=== PATIENT | male | born 1955 | race Two or more races ===

== ENCOUNTER 2022-05-14 11:19 | Emergency (ER) | payer MEDICARE, OTHER ==
[~2022-05-14] VITALS: Ht 167.6 cm; Wt 81.6 kg
[~2022-05-14 11:19] MED LIST: ENAL5TAB10 PO; NOR10T PO; OMEP20CA74 PO
[2022-05-14] MEDS ORDERED: SODIUM CHLORIDE 0.9% 1,000 ML IVB ONE (11:30)
[2022-05-14] MEDS ORDERED: ACTIVATED CHARCOAL 50 GM/240 ML SOL PO ONE (11:30)
[2022-05-14] MEDS ORDERED: cefTRIAXone 1GM/50ML D5W 50 ML IV ONE (11:45)
[2022-05-14 12:15] LABS: Basophils # (auto) 0 10 ^3/uL (0-0.2); Basophils % (auto) 0.4 % (0.0-2.0); Eosinophils # (auto) 0 10 ^3/uL (0-0.8); Eosinophils % (auto) 0.4 % (0.0-7.0); Hematocrit 40.7 % (41.0-53.0); Hemoglobin 13.3 g/dL (13.5-17.5); Lymphocytes % (auto) 21.4 % (10.0-50.0); Mean Corpuscular Hemoglobin 28.2 pg (28.0-32.0); Mean Corpuscular Hgb Conc. 32.6 g/dL (32.0-36.0); Mean Corpuscular Volume 86.4 fL (80.0-100.0); Monocytes # (auto) 0.7 10 ^3/uL (0-1.3); Monocytes % (auto) 7.5 % (0.0-12.0); Neutrophils # (auto) 6.7 10 ^3/uL (1.6-8.6); Neutrophils % (auto) 70.3 % (37.0-80.0); Nucleated Red Blood Cells % 0.1 %; Red Blood Cells 4.71 10^6/uL (4.5-5.90); Red Cell Distribution Width 14.5 % (11.8-14.3); White Blood Cell 9.5 10^3/uL (4.4-10.8)
[2022-05-14 12:30] LABS: Alcohol, Urine < 3.0 mg/dL (0-10); Amphetamine Screen, Urine NEGATIVE (NEGATIVE); Barbiturate Scree,Urine NEGATIVE (NEGATIVE); Benzodiazephine Screen, Urine NEGATIVE (NEGATIVE); Cannabinoid Screen, Urine NEGATIVE (NEGATIVE); Cocaine Screen, Urine NEGATIVE (NEGATIVE); Opiate Scree,Urine POSITIVE (NEGATIVE); Phencyclidine Screen, Urine NEGATIVE (NEGATIVE)
[2022-05-14 12:33] LABS: Albumin 2.6 g/dL (3.4-5.0); BUN/Creatinine Ratio 16.1; Calcium 8.9 mg/dL (8.5-10.1); Potassium 3.6 mmol/L (3.5-5.1)
[2022-05-14 12:36] LABS: Bilirubin, Total 0.2 mg/dL (0.2-1.0); Total Protein 7.7 g/dL (6.4-8.2)
[2022-05-14 12:46] LABS: Acetaminophen 36.5 ug/mL (10-30)
[2022-05-14 12:49] LABS: Salicylate 34.7 mg/dL (2.8-20.0)
[2022-05-14 12:57] LABS: Urine Bacteria NONE SEEN /hpf (None Seen); Urine Blood Negative /uL (Negative); Urine Specific Gravity 1.013 (1.001-1.035); Urine WBC <1 /hpf (0 - 3)
[2022-05-14] MEDS ORDERED: SODIUM CHLORIDE 0.9% 1,000 ML IV ONE (13:00)
[2022-05-14] MEDS ORDERED: cloNIDine HCL 0.1 MG TAB PO ONE (14:30)
[2022-05-14 14:58] VITALS: BP 184/89
== END 2022-05-14 15:27 | disposition short-term general hospital (02) ==
LOC: ER 11:19 → EDBD 11:19 → ER 15:27
DX: T39.012A Poisoning by aspirin, intentional self-harm, initial encounter (principal); T46.4X2A Poisoning by angiotensin-converting-enzyme inhibitors, intentional self-harm, initial encounter; L03.113 Cellulitis of right upper limb; I10 Essential (primary) hypertension; E11.9 Type 2 diabetes mellitus without complications; Z79.899 Other long term (current) drug therapy; Z20.822 Contact with and (suspected) exposure to COVID-19; Y92.89 Other specified places as the place of occurrence of the external cause
CPT/HCPCS: 36415; 71045; 73200; 80053; 80307; 80320; 80329; 81001; 85025; 87426; 93005; 96361; 96365; 99285; J0696; J7030

== ENCOUNTER 2023-03-21 13:01 | Inpatient (IN) | payer OTHER ==
[~2023-03-21] VITALS: Ht 167.6 cm; Wt 86.9 kg
[2023-03-21] MEDS ORDERED: PIPERACILLIN-TAZOB 3.375GM 100 ML IV ONE (13:15)
[2023-03-21] MEDS ORDERED: SODIUM CHLORIDE 0.9% 1,000 ML IV ONE ×2 (13:15→15:15)
[2023-03-21] MEDS ORDERED: VANCOMYCIN 1GM/250ML 250 ML IV ONE (13:15)
[2023-03-21 14:10] LABS: Albumin 1.9 g/dL (3.4-5.0); Calcium 8.4 mg/dL (8.5-10.1); Potassium 3.5 mmol/L (3.5-5.1)
[2023-03-21 14:17] LABS: Basophils # (auto) 0 10 ^3/uL (0-0.2); Eosinophils # (auto) 0 10 ^3/uL (0-0.8); White Blood Cell 5.5 10^3/uL (4.4-10.8)
[2023-03-21 14:18] LABS: BUN/Creatinine Ratio 13.8 (10.0-20.0); Bilirubin, Total 0.3 mg/dL (0.2-1.0); CRP High Sensitivity 13.3 mg/dL (< 0.3)
[2023-03-21 14:19] LABS: Basophils % (auto) 0.6 % (0.0-2.0); Eosinophils % (auto) 0.6 % (0.0-7.0); Hematocrit 32.5 % (41.0-53.0); Hemoglobin 10.2 g/dL (13.5-17.5); Lymphocytes # (auto) 1.3 10 ^3/uL (0.4-5.4); Lymphocytes % (auto) 23.8 % (10.0-50.0); Mean Corpuscular Hemoglobin 21.4 pg (28.0-32.0); Mean Corpuscular Hgb Conc. 31.5 g/dL (32.0-36.0); Monocytes # (auto) 0.5 10 ^3/uL (0-1.3); Neutrophils # (auto) 3.6 10 ^3/uL (1.6-8.6); Nucleated Red Blood Cells % 0.3 %; Red Blood Cells 4.77 10^6/uL (4.5-5.90); Red Cell Distribution Width 18.9 % (11.8-14.3)
[2023-03-21] MEDS ORDERED: IOHEXOL 300 MG/ML 100ML BOTTLE IJ ONE (14:59)
[2023-03-21 15:49] LABS: Lactic Acid w/Reflex 4.4 mmol/L (0.4-2.0)
[2023-03-21] MEDS ORDERED: CLINDAMYCIN 900MG IV 50 ML IV ONE (18:00)
[2023-03-21] MEDS ORDERED: fentaNYL CITRATE 100 MCG/2 ML VL IV ONE ×2 (18:45→23:15)
[2023-03-21 20:56] LABS: INR 1.07 (0.9-1.15); Partial Thromboplastin Time 29.6 sec (24.6-33.4)
[2023-03-21] MEDS ORDERED: NITROGLYCERIN 0.4 MG SL TAB SL PRN (23:15)
[2023-03-21] MEDS ORDERED: VANCOMYCIN PER PHARMACY 0 MG IV SCH (23:15)
[2023-03-21] MEDS ORDERED: DOCUSATE SOD 100 MG CAP PO PRN (23:15)
[2023-03-21] MEDS ORDERED: ACETAMINOPHEN 325 MG TAB PO PRN (23:15)
[2023-03-21] MEDS ORDERED: HYDROcodone-ACET 5/325MG TAB PO PRN (23:15)
[2023-03-21] MEDS ORDERED: ALBUMIN 25% 100 ML IV ONE (23:15)
[2023-03-21] MEDS ORDERED: MORPHINE SULFATE INJ 2 MG/ml SYRG IV PRN (23:15)
[2023-03-21] MEDS ORDERED: ONDANSETRON HCL 4 MG/2 ML VIAL IV PRN (23:15)
[2023-03-21] MEDS ORDERED: DEXTROSE (50%) 50ML SYRG IV PRN (23:15)
[2023-03-21] MEDS ORDERED: SODIUM CHLORIDE 0.9% 1,000 ML IV SCH (23:15)
[2023-03-22] VITALS (8 sets, daily range): BP systolic 121–169; BP diastolic 70–86
[2023-03-22] MEDS: ACCU-CHEK COMFORT CURVE STRIP VI SCH ×4 (00:11→17:57)
[2023-03-22] MEDS: PIPERACILLIN-TAZOB 3.375GM 100 ML IV SCH ×3 (02:25→22:19)
[2023-03-22] MEDS: MORPHINE SULFATE INJ 2 MG/ml SYRG IV PRN ×5 (03:22→22:13)
[2023-03-22] MEDS: InsuLIN REG 1unit/0.01ml Soln (100units/ml) SC SCH ×5 (06:00→23:52)
[2023-03-22 07:03] LABS: Basophils # (auto) 0 10 ^3/uL (0-0.2); Basophils % (auto) 0.5 % (0.0-2.0); Eosinophils # (auto) 0.1 10 ^3/uL (0-0.8); Lymphocytes # (auto) 1.2 10 ^3/uL (0.4-5.4)
[2023-03-22 07:05] LABS: Eosinophils % (auto) 2.2 % (0.0-7.0); Hematocrit 28.3 % (41.0-53.0); Lymphocytes % (auto) 25.2 % (10.0-50.0); Mean Corpuscular Hemoglobin 21.5 pg (28.0-32.0); Mean Corpuscular Hgb Conc. 31.9 g/dL (32.0-36.0); Mean Corpuscular Volume 67.2 fL (80.0-100.0); Monocytes # (auto) 0.5 10 ^3/uL (0-1.3); Monocytes % (auto) 10.4 % (0.0-12.0); Neutrophils % (auto) 61.7 % (37.0-80.0); Nucleated Red Blood Cells % 0.1 %; Red Blood Cells 4.21 10^6/uL (4.5-5.90); Red Cell Distribution Width 18.7 % (11.8-14.3); White Blood Cell 4.9 10^3/uL (4.4-10.8)
[2023-03-22 07:35] LABS: Albumin 2.2 g/dL (3.4-5.0); BUN/Creatinine Ratio 15.3 (10.0-20.0); Bilirubin, Total 0.3 mg/dL (0.2-1.0); Calcium 8.2 mg/dL (8.5-10.1); Potassium 3.1 mmol/L (3.5-5.1); Total Protein 6.4 g/dL (6.4-8.2)
[2023-03-22] MEDS ORDERED: POTASSIUM CHLORIDE 20 MEQ, LIDOCAINE 1% (LOCAL ANESTH.) 2 ML in SODIUM CHL 0.9% 100 ML IV ONE (08:45)
[2023-03-22] MEDS ORDERED: SOD CHL 0.9%/ KCL 40MEQ 1,000 ML IV ONE (08:45)
[2023-03-22] MEDS ORDERED: PROPOFOL 10 MG/ML 20 ML IV ONE (09:52)
[2023-03-22] MEDS ORDERED: DexAMETHasone SOD PHOS 10MG/1ML VIAL INJ ONE (09:53)
[2023-03-22] MEDS ORDERED: ePHEDrine SULFATE 50 MG/ML AMP ONE (09:53)
[2023-03-22] MEDS ORDERED: ONDANSETRON HCL 4 MG/2 ML VIAL ONE (09:53)
[2023-03-22] MEDS ORDERED: ENOXAPARIN SOD 40 MG/0.4 ML SYRINGE SC SCH (10:00)
[2023-03-22] MEDS ORDERED: ASPirin 81 mg TAB PO SCH (10:00)
[2023-03-22] MEDS ORDERED: LIDOCAINE 2% (LOCAL ANESTH.) PF 5ml SDV ONE (10:38)
[2023-03-22] MEDS ORDERED: HYDROmorphone HCL 2 MG/ML VL/or syr IV PRN (11:15)
[2023-03-22] MEDS ORDERED: LABETALOL HCL 5 MG/ML 4ML SYRINGE IV PRN (11:15)
[2023-03-22] MEDS ORDERED: hydrALAZINE HCL 20 MG/ML VL IV PRN (11:15)
[2023-03-22] MEDS: FAMOTIDINE (10MG/ML) 2ML VL IV SCH ×2 (12:41→22:19)
[2023-03-22] MEDS: VANCOMYCIN 1GM/250ML 250 ML IV SCH ×2 (14:13→22:19)
[2023-03-23] MEDS: ACCU-CHEK COMFORT CURVE STRIP VI SCH ×2 (00:29→05:57)
[2023-03-23] MEDS: MORPHINE SULFATE INJ 2 MG/ml SYRG IV PRN ×2 (02:21→06:23)
[2023-03-23 05:00] VITALS: BP_SYST 102; BP_SYST 162; BP_DIAS 79
[2023-03-23] MEDS: InsuLIN REG 1unit/0.01ml Soln (100units/ml) SC SCH (05:59)
[2023-03-23 06:23] VITALS: BP 162/79
== END 2023-03-23 07:00 | disposition left against medical advice (07) | DRG 603 ==
LOC: EDBD 13:01 → ER 13:01 → OVERFLOW 23:14 → EAST 03-22 02:50
PROVIDERS: ADMIT Nurse Practitioner Family; ATTEND Nurse Practitioner Family
PROC: 0Y9C0ZZ Drainage of Right Upper Leg, Open Approach (ICD-10-PCS; principal; 2023-03-22 10:15)
DX: L02.415 Cutaneous abscess of right lower limb (principal); L02.31 Cutaneous abscess of buttock; L03.90 Cellulitis, unspecified; N17.9 Acute kidney failure, unspecified; I10 Essential (primary) hypertension; E88.09 Other disorders of plasma-protein metabolism, not elsewhere classified; E78.5 Hyperlipidemia, unspecified; E11.9 Type 2 diabetes mellitus without complications; R26.81 Unsteadiness on feet; F11.10 Opioid abuse, uncomplicated; F19.10 Other psychoactive substance abuse, uncomplicated; Z20.822 Contact with and (suspected) exposure to COVID-19; Z82.3 Family history of stroke; Z82.49 Family history of ischemic heart disease and other diseases of the circulatory system; Z82.61 Family history of arthritis
CPT/HCPCS: 36415; 71045; 73701; 80053; 82962; 83605; 85025; 85610; 85730; 86141; 86850; 86900; 86901; 87040; 87070; 87075; 87077; 87186; 87205; 87426; 93005; 96365; 96367; 99291; G0378; J1100; J1815; J2001; J2405; J2543; J2704; J3490; P9047

== ENCOUNTER 2023-09-26 17:17 | Emergency (ER) | payer OTHER ==
[~2023-09-26] VITALS: Ht 167.6 cm; Wt 70.0 kg
[~2023-09-26 17:17] MED LIST changes: +CEPH500C PO; +CLIN300C70 PO; -ENAL5TAB10 PO; +ENAL5TAB22 PO
[2023-09-26] MEDS ORDERED: ONDANSETRON HCL 4 MG/2 ML VIAL IV ONE ×2 (18:00→22:15)
[2023-09-26] MEDS ORDERED: MORPHINE SULFATE 4 MG/ML SYR/VIAL IV ONE ×2 (18:00→22:15)
[2023-09-26 18:48] LABS: Basophils # (auto) 0 10 ^3/uL (0-0.2); Basophils % (auto) 0.4 % (0.0-2.0); Eosinophils # (auto) 0.1 10 ^3/uL (0-0.8); Hemoglobin 8.3 g/dL (13.5-17.5); Monocytes # (auto) 0.6 10 ^3/uL (0-1.3)
[2023-09-26 18:49] LABS: Eosinophils % (auto) 1.5 % (0.0-7.0); Hematocrit 25.7 % (41.0-53.0); Lymphocytes # (auto) 1.2 10 ^3/uL (0.4-5.4); Lymphocytes % (auto) 12.8 % (10.0-50.0); Mean Corpuscular Hemoglobin 23.4 pg (28.0-32.0); Mean Corpuscular Hgb Conc. 32.3 g/dL (32.0-36.0); Mean Corpuscular Volume 72.4 fL (80.0-100.0); Monocytes % (auto) 6.7 % (0.0-12.0); Neutrophils # (auto) 7.3 10 ^3/uL (1.6-8.6); Neutrophils % (auto) 78.6 % (37.0-80.0); Red Blood Cells 3.55 10^6/uL (4.5-5.90); White Blood Cell 9.3 10^3/uL (4.4-10.8)
[2023-09-26 18:54] LABS: Red Cell Distribution Width 20.3 % (11.8-14.3)
[2023-09-26 18:59] LABS: Alanine Aminotransferase 13 U/L (7-40); Albumin 3.4 g/dL (3.2-4.8); Alkaline Phosphatase 74 U/L (46-116); Anion Gap 5 (5-15); Aspartate Aminotransferase 17 U/L (13-40); Bilirubin, Total < 0.2 mg/dL (0.2-1.0); Blood Urea Nitrogen 13 mg/dL (9-23); Calcium 8.3 mg/dL (8.7-10.4); Carbon Dioxide 25 mmol/L (20-30); Chloride 106 mmol/L (98-107); Glucose 207 mg/dL (74-106); INR 0.99 (0.9-1.15); Partial Thromboplastin Time 26.1 SEC (24.5-34.5); Prothrombin Time 10.4 sec (9.3-11.8); Sodium 136 mmol/L (136-145); Total Protein 6.4 g/dL (5.7-8.2)
[2023-09-26 23:29] VITALS: BP 146/60; PULSE 74; RESP 16; TEMP 98.1; O2SAT 99
== END 2023-09-26 23:53 | disposition short-term general hospital (02) ==
LOC: EDBD 17:17 → ER 17:17
DX: S72.142A Displaced intertrochanteric fracture of left femur, initial encounter for closed fracture (principal); S80.02XA Contusion of left knee, initial encounter; E11.9 Type 2 diabetes mellitus without complications; E78.5 Hyperlipidemia, unspecified; I10 Essential (primary) hypertension; F17.210 Nicotine dependence, cigarettes, uncomplicated; Z79.899 Other long term (current) drug therapy; W01.0XXA Fall on same level from slipping, tripping and stumbling without subsequent striking against object, initial encounter; Y93.89 Activity, other specified; Y92.89 Other specified places as the place of occurrence of the external cause; Y99.8 Other external cause status
CPT/HCPCS: 36415; 73700; 80053; 85025; 85610; 85730; 96374; 96375; 96376; 99285; J2270; J2405

== ENCOUNTER 2024-10-19 23:01 | Emergency (ER) | payer OTHER ==
[~2024-10-19] VITALS: Ht 160 cm; Wt 70.5 kg
[~2024-10-19 23:01] MED LIST changes: +CLIN1CAP70 PO; -CLIN300C70 PO
--- NOTE | 2024-10-19 23:55 | ED.PDOC ---
History of Present Illness(SKN HPI Comments A 68 year old male brought in by EMS presents to the ED with a chief complaint of abscess on RT side head onset 3 days. Patient states he noticed an abscess on RT side of head 3 days ago, noticed it is growing, is painful and pain is radiating to neck. Patient states he quit using Heroin about 2 months ago, has had abscess on bilateral arms and has a wound care nurse. Patient has a past medical history of HTN, HLD, DM. No other symptoms or modifying factors present at this time. Chief Complaint: Abscess Time Seen by MD: 23:42 Primary Care Provider: Singh History of Present Illness: Medications, Allergies Allergies: Coded Allergies: NO KNOWN ALLERGIES (Unverified , 06/06/15) Home Meds Active Scripts Clindamycin Hcl (Clindamycin Hcl) 300 Mg Cap, 1 CAP PO TID for 7 Days, #21 CAP 0 Refills Prov:BENNIE MOSES 07/23/23 Cephalexin Monohydrate (Cephalexin) 500 Mg Cap, 1 CAP PO BID for 7 Days, #14 CAP 0 Refills Prov:BENNIE MOSES 07/23/23 Reported Medications Hydrocodone-Acetaminophen ([place] 10/325MG) 1 Tab Tb, 1 TAB PO BID, #60 TAB 06/07/15 Omeprazole (PRILOSEC) 20 Mg Cap, 1 CAP PO TID, #90 CAP 1 Refill 06/07/15 Enalapril Maleate (Enalapril Maleate) 5 Mg Tab, 1 TAB PO DAILY, #30 TAB 5 Refills 06/07/15 Information Source: Patient Mode of Arrival: EMS Severity: Moderate Timing: Days Duration: Since onset Prehospital treatment: None Location: Head (RT side) Wound Type: Abscess History of: Diabetes Past Medical History PAST MEDICAL HISTORY: DM, High Lipids, HTN Surgical History: Denies all surgeries Family History Family History: Reviewed,noncontributory to illness Social History Smoker: Cigar Alcohol: Sober Drugs: Heroin (2 months ago) Lives In: Home Constitutional: denies: chills, diaphoresis, fatigue, fever, malaise, sweats, weakness, others EENTM: denies: blurred vision, double vision, ear bleeding, ear discharge, ear drainage, ear pain, ear ringing, eye pain, eye redness, hearing loss, mouth pain, mouth swelling, nasal discharge, nose bleeding, nose congestion, nose pain, photophobia, tearing, throat pain, throat swelling, voice changes, others Respiratory: denies: cough, hemoptysis, orthopnea, SOB at rest, shortness of breath, SOB with excertion, stridor, wheezing, others Cardiovascular: denies: chest pain, dizzy spells, diaphoresis, Dyspnea on exer tion, edema, irregular heart beat, left arm pain, lightheadedness, palpitations, PND, syncope, others Gastrointestinal: denies: abdomen distended, abdominal pain, blood streaked bowels, constipated, diarrhea, dysphagia, difficulty swallowing, hematemesis, melena, nausea, poor appetite, poor fluid intake, rectal bleeding, rectal pain, vomiting, others Genitourinary: denies: burning, dysuria, flank pain, frequency, hematuria, incontinence, penile discharge, penile sore, pain, testicle pain, testicle swelling, urgency, others Neurological: denies: dizziness, fainting, headache, left sided numbness, left sided weakness, numbness, paresthesia, pre-existing deficit, right sided numbness, right sided weakness, seizure, speech problems, tingling, tremors, weakness, others Musculoskeletal: denies: back pain, gout, joint pain, joint swelling, muscle pain, muscle stiffness, neck pain, others Integumetry: reports: others (abscess RT side head); denies: bruises, change in color, change in hair/nails, dryness, laceration, lesions, lumps, rash, wounds Allergic/Immunocompromised: denies: Difficulty Healing, Frequent Infections, Hives, Itching, others Hematologic/Lymphatic: denies: anemia, blood clots, easy bleeding, easy bruising, swollen glands, others Endocrine: denies: excessive hunger, excessive sweating, excessive thirst, excessive urination, flushing, intolerance to cold, intolerance to heat, unexplained weight gain, unexplained weight loss, others Psychiatric: denies: anxiety, bipolar disorder, depression, hopeless, panic disorder, schizophrenia, sleepless, suicidal, others All Other Systems: Reviewed and Negative Physical Exam General Appearance: Moderate Distress, Normal HEENT: Normal ENT Inspection, Pharynx Normal, TMs Normal Neck: Full Range of Motion, Non-Tender, Normal, Normal Inspection Respiratory: Chest Non-Tender, Lungs Clear, No Accessory Muscle Use, No Respiratory Distress, Normal Breath Sounds Cardiovascular: No Edema, No JVD, No Murmur, No Gallop, Normal Peripheral Pulses, Regular Rate/Rhythm Breast Exam: Deferred Gastrointestinal: No Organomegaly, Non Tender, No Pulsatile Mass, Normal Bowel Sounds, Soft Genitalia: Deferred Pelvic: Deferred Rectal: Deferred Extremities: No calf tenderness, Normal capillary refill, Normal inspection, Normal range of motion, Non-tender, No pedal edema Musculoskeletal : Apperance: Normal Neurologic: Alert, seeing eye dog trainer II-XII nml as Tested, No Motor Deficits, Normal Affect, Normal Mood, No Sensory Deficits Cerebellar Function: Normal Reflexes: Normal Skin: Wounds (LT arm with diffused wounds at different stages of healing. RT arm with diffused open wounds) Lymphatic: No Adenopathy Was a procedure done? Was a procedure done?: No EKG EKG : [place]: Normal Cardiac Rhythm: NSR Comments NSR 85 bpm Differential Diagnosis (INTG) Differential Diagnosis: Cellulitis Differential Diagnosis: Abscess, Cellulitis, Contact Dermatitis, Drug Reaction Abscess: Abscess, Cellulitis X-Ray, Labs, Meds, VS Vital Signs Date Time Temp Pulse Resp B/P (MAP) Pulse Ox O2 Delivery O2 Flow Rate FiO2 10/20/24 04:49 90 17 160/66 10/20/24 04:19 98 16 196/74 10/20/24 04:17 96 10/20/24 04:00 98 11 180/78 (112) 96 10/20/24 02:00 97 21 170/60 (96) 10/20/24 00:46 85 10/20/24 00:00 98.7 94 14 153/78 (103) 94 98.7 10/20/24 00:00 Room Air* 0 21 10/19/24 23:25 95 21 163/81 (108) 94 10/19/24 23:10 100.2 101 20 136/73 (94) 97 Lab Test 10/20/24 03:01 10/20/24 01:14 10/20/24 00:30 Range/Units Urine Color Yellow Yellow Urine Clarity Clear Clear Urine pH 5.5 5.0-9.0 Urine Specific [place] 1.019 1.001-1.035 Urine Protein 1+ H Negative Urine Ketones Negative Negative Urine Blood Negative Negative /uL Urine Nitrite Negative Negative Urine Bilirubin Negative Negative Urine Urobilinogen 2 H Negative mg/dL Urine Leukocyte Esterase Negative Negative /uL Urine RBC 3 0 - 3 /hpf Urine WBC 2 0 - 3 /hpf Urine Squamous Epithelial Cells Few <5 /hpf Urine Amorphous Crystals Few None Seen /hpf Urine Bacteria Few H None Seen /hpf Urine Mucus Few None Seen Urine Glucose Normal Normal mg/dL Urine Opiates Screen Pos NEGATIVE Urine Fentanyl Screen Neg NEGATIVE Urine Barbiturates Screen Neg NEGATIVE Urine Phencyclidine Screen Neg NEGATIVE Urine Amphetamines Screen Neg NEGATIVE Urine Benzodiazepines Screen Neg NEGATIVE Urine Cocaine Screen Neg NEGATIVE Urine Cannabinoids Screen Neg NEGATIVE Troponin I High Sensitivity 4 4 </=54 ng/L White Blood Count 10.2 4.4-10.8 10^3/uL Red Blood Count 4.09 L 4.5-5.90 10^6/uL Hemoglobin 8.5 L 13.5-17.5 g/dL Hematocrit 27.1 L 41.0-53.0 % Mean Corpuscular Volume 66.2 L 80.0-100.0 fL Mean Corpuscular Hemoglobin 20.8 L 28.0-32.0 pg Mean Corpuscular Hemoglobin Concent 31.4 L 32.0-36.0 g/dL Red Cell Distribution Width 19.8 H 11.8-14.3 % Platelet Count 411 140-450 10^3/uL Mean Platelet Volume 6.9 6.9-10.8 fL Neutrophils (%) (Auto) 76.8 37.0-80.0 % Lymphocytes (%) (Auto) 14.7 10.0-50.0 % Monocytes (%) (Auto) 6.4 0.0-12.0 % Eosinophils (%) (Auto) 1.8 0.0-7.0 % Basophils (%) (Auto) 0.3 0.0-2.0 % Neutrophils # (Auto) 7.9 1.6-8.6 10 ^3/uL Lymphocytes # (Auto) 1.5 0.4-5.4 10 ^3/uL Monocytes # (Auto) 0.7 0-1.3 10 ^3/uL Eosinophils # (Auto) 0.2 0-0.8 10 ^3/uL Basophils # (Auto) 0 0-0.2 10 ^3/uL Nucleated Red Blood Cells 0.1 % Platelet Estimate Adequate Hypochromasia (manual) Marked Anisocytosis (manual) Slight Microcytosis Marked Ovalocytes Few Schistocytes Few Sodium Level 137 136-145 mmol/L Potassium Level 3.3 L 3.5-5.1 mmol/L Chloride Level 106 98-107 mmol/L Carbon Dioxide Level 26 20-31 mmol/L Anion Gap 5 5-15 Blood Urea Nitrogen 11 9-23 mg/dL Creatinine 0.83 0.700-1.30 mg/dL Glomerular Filtration Rate Calc 95 >90 mL/min BUN/Creatinine Ratio 13.3 10.0-20.0 Serum Glucose 179 H 74-106 mg/dL Lactic Acid Level 1.4 0.4-2.0 mmol/L Calcium Level 8.7 8.7-10.4 mg/dL Total Bilirubin 0.2 0.2-1.0 mg/dL Aspartate Amino Transferase (AST) < 8 L 13-40 U/L Alanine Aminotransferase (ALT) < 9 7-40 U/L Alkaline Phosphatase 77 46-116 U/L B-Type Natriuretic Peptide 94.35 0-100 pg/mL Total Protein 6.7 5.7-8.2 g/dL Albumin 3.4 3.2-4.8 g/dL Plasma/Serum Blood Alcohol 3.6 <10 mg/dL Current Medications Medications (Trade) Dose Ordered Sig/Gifty Route Start Time Stop Time Status Last Admin Vancomycin HCl 200 ml @ 200 mls/hr ONCE ONCE IV 10/20/24 00:30 10/20/24 01:29 DC 10/20/24 01:32 Sodium Chloride 2,000 ml @ 1,000 mls/hr Q2H ONCE IV 10/20/24 00:30 10/20/24 02:29 DC 10/20/24 01:10 Morphine Sulfate 10 mg ONCE ONCE IV 10/20/24 04:15 10/20/24 04:16 DC 10/20/24 04:19 Ondansetron HCl (Zofran) 4 mg ONCE ONCE IV 10/20/24 04:15 10/20/24 04:16 DC 10/20/24 04:17 Urinalysis negative. Urine drug screen is positive for opiates. Potassium is 3.3. Glucose is 179. Hemoglobin is 8.5. Lactic acid is 1.4. Brain CT and upper extremity CTs are pending. The patient has diabetes and several extensive wounds and soft tissue swelling. We will admit the patient to the hospitalist for further evaluation and care. [address] [address] Ph: [phone] DIAGNOSTIC IMAGING Diagnostic Imaging Report : [id number] Signed PATIENT: JESSE RAMIREZ ACCT: [id number] UNIT: [id number] : 1955 LOC: ER ROOM / BED: / AGE / SEX: 68 / M ADM STATUS: REG ER SERVICE 002 ORDERING PHYSICIAN: LIAM AKHTAR MD PROCEDURE(s): HDWCT - HEAD CONTRAST ONLY REASON: scalp abscess ORDER NUMBER(s): [id number], ACCESSION NUMBER(s): [id number] Examination: HDWCT CLINICAL INDICATION: scalp abscess COMPARISON: None. CONTRAST USED: Intravenous. TECHNIQUE: The examination was performed obtaining 5 mm slices post contrast. CT scan was done according to ALARA (As Low as Reasonably Achievable). Multiplanar reconstructions were obtained. FINDINGS: Limited evaluation, due to beam hardening artifacts in the posterior fossa. SUPRATENTORIAL BRAIN: Cerebral Hemispheres: There is no midline shift or mass effect, intra- or extra-axial fluid collections or hemorrhage. Periventricular White Matter/Basal Ganglia: No abnormal areas of altered attenuation within the periventricular white matter or basal ganglia. POSTERIOR FOSSA: The brainstem is normal and the visualized cerebellar hemispheres are unremarkable. VENTRICULAR SYSTEM: Slightly asymmetrical both lateral ventricles with the rig ht one being prominent, a normal variation. There is no evidence of hydrocephalus or transependymal flow of cerebrospinal fluid. SKULL BASE AND PARASELLAR REGION: The skull base is normal, with no parasellar masses or abnormalities identified. CALVARIUM AND SCALP REGION: Hypo- to iso-dense lesion of approximate size 4.3 x 1.1 x 3.9 cm with mild adjacent fat stranding noted in the right occipital scalp, infective/inflammatory etiology, probable forming abscess. Advised clinical correlation. PARANASAL SINUSES: Mucous retention cyst noted in the visualized left maxillary sinus. No significant inflammatory changes are identified in the visualized paranasal sinuses. IMPRESSION: Hypo- to iso-dense lesion of approximate size 4.3 x 1.1 x 3.9 cm with mild adjacent fat stranding noted in the right occipital scalp, infective/inflammatory etiology, probable forming abscess. Advised clinical correlation. No evidence of bony erosion or any intracranial extension in current study. Electronically Signed 10/20/2024 03:48 Radha Brady ATED BY: LIZZY MCCONNELL MD DICTATED DATE/TIME: 10/20/24347 SIGNED BY: LIZZY MCCONNELL MD SIGNED DATE/TIME: 10/20/24347 CC: [place] [id number] Ph: [phone] DIAGNOSTIC IMAGING Diagnostic Imaging Report : [id number] Signed PATIENT: JESSE RAMIREZ ACCT: [id number] UNIT: [id number] : 1955 LOC: ER ROOM / BED: / AGE / SEX: 68 / M ADM STATUS: REG ER SERVICE ORDERING PHYSICIAN: LIAM AKHTAR MD PROCEDURE(s): UECIR - LT UPPER EXTREMITY W CONTRAS REASON: r/o abscess ORDER NUMBER(s): [id number], ACCESSION NUMBER(s): [id number] INDICATION: r/o abscess COMPARISON: None TECHNIQUE: CT of the left arm was performed with contrast. Volume transverse images were obtained and reconstructed in multiple planes using bone and soft tissue algorithms. CONTRAST: None Radiation Dose Information: CTDI volume is 24.0 mGy. Dose-length product is 1269 mGy*cm FINDINGS: There is soft tissue edema in the mid to distal arm. There is a peripherally enhancing fluid collection measuring 1.9 x 1.8 cm ( series 309, image 117), most consistent with abscess. There is a more superficial peripherally enhancing fluid collection in the muscles of the mid arm adjacent to a skin defect. This superficial fluid collection measures 8 x 9 x 7 mm ( series 309, image 107) and is also consistent with abscess. Diffuse intramuscular and soft tissue edema. There are small foci of gas in the upper arm with ill-defined enhancement consistent with infection. There is normal vascular enhancement. Multiple enlarged left axillary lymph nodes measuring up to 2.0 cm compatible with reactive adenopathy. There is gynecomastia. The alignment is normal. The joint spaces are normal. There is no fracture. No cortical destruction or periosteal reaction. IMPRESSION: 1. Multifocal cellulitis and multiple intramuscular abscesses in the left arm as described. Multiple foci of gas present within the muscles of the upper arm for which the presence of gas- producing bacterial infection is not excluded. 2. Reactive left axillary lymphadenopathy. 3. All CT scans at this medical facility are performed using dose modulation techniques as appropriate to a performed exam including the following: Automated exposure control was utilized; adjustment of the MA and/or KV according to patient size; and use of iterative reconstruction technique. ATED BY: ANIVAL SMITH MD DICTATED DATE/TIME: 10/20/24417 SIGNED BY: ANIVAL SMITH MD SIGNED DATE/TIME: 10/20/24417 CC: [place] [address] Ph: [phone] DIAGNOSTIC IMAGING Diagnostic Imaging Report : [id number] Signed PATIENT: EJSSE RAMIREZ ACCT: [id number] UNIT: [id number] : 1955 LOC: ER ROOM / BED: / AGE / SEX: 68 / M ADM STATUS: REG ER SERVICE ORDERING PHYSICIAN: LIAM AKHTAR MD PROCEDURE(s): RUECT - RT UPPER EXTREMITY WITH CONT REASON: abscess ORDER NUMBER(s): [id number], ACCESSION NUMBER(s): [id number] Examination: RUECT CLINICAL INDICATION: SCALP ABSCESS. COMPARISON: None. CONTRAST USED: Intravenous. TECHNIQUE: A CT scan of the right upper extremity was performed, including postcontrast images. Multiplanar reconstructions were evaluated. CT scan done according to ALARA (As Low as Reasonably Achievable).FINDINGS:Soft Tissues:Skin Surface and Subcutaneous Tissues: Irregularity and thickening of the skin surface are observed along the lateral aspect of the arm, with a thickness of approximately 10 mm. Biceps Muscle: A localized fluid collection is noted within the biceps muscle, measuring approximately 2 x 1 x 1 cm, suggestive of an abscess. Multiple ill-defined fluid collections are observed in the anterior biceps muscle, just above the cubital fossa. The largest of these measures approximately 3 x 2 x 3 cm and contains specks within, also suggestive of abscesses. Lymph Nodes: Multiple reactive lymph nodes are identified in the right axillary region, with the largest measuring 2 x 1 cm. Bones: No evidence of bony erosion or other osseous abnormalities is noted.IMPRESSION:1. Multiple abscesses involving the biceps muscle, the largest measuring 3 x 2 x 3 cm, located anteriorly just above the cubital fossa. 2. Skin thickening and irregularity along the lateral aspect of the arm (10 mm thick). 3. Reactive lymphadenopathy in the right axillary region, with the largest node measuring 2 x 1 cm. 4. No evidence of bony erosion or osseous abnormality. Electronically Signed 10/20/2024 05:18 Radha Brady ATED BY: LIZZY MCCONNELL MD DICTATED DATE/TIME: 10/20/24517 SIGNED BY: LIZZY MCCONNELL MD SIGNED DATE/TIME: 10/20/24517 CC: The patient has multiple abscesses in both arms and scalp. He was placed on vancomycin but need further debridement and IV antibiotics. He will be transferred to [place] by Dr. Corrales. Authorization number is [id number] Time of 1ST Reevaluation: 00:12 Reevaluation 1ST: Unchanged Patient Education/Counseling: Diagnosis, Treatment, Prognosis Family Education/Counseling: No Family Present Departure 1 Departure Time of Disposition: 05:39 Impression: Primary Impression: Scalp abscess Additional Impressions: Abscess of upper extremity Open wounds involving multiple regions of upper extremity with complication Disposition: 02 SHORT TERM HOSPITAL Condition: Stable Discharged With: Self Critical Care Note Critical Care Time?: Yes (35 min-critical care time only) Stability Stability form required: No I personally scribed for LIAM AKHTAR MD ([email or web address]) on 10/19/24 at 23:55. Zoila ctronically submitted by Aminata Fields ([email or web address]). I personally scribed for LIAM AKHTAR MD ([email or web address]) on 10/20/24 at 00:52. Electronically submitted by Aminata Fields ([email or web address]). I personally scribed for LIAM AKHTAR MD ([email or web address]) on 10/20/24 at 01:00. Electronically submitted by Aminata Fields ([email or web address]). I personally scribed for LIAM AKHTAR MD ([email or web address]) on 10/20/24 at 05:38. Electronically submitted by Aminata Fields ([email or web address]). LIAM AKHTAR MD Oct 19, 2024 23:55
[2024-10-20] MEDS: IOHEXOL 300 MG/ML 100ML BOTTLE IJ ONE (00:34)
--- NOTE | 2024-10-20 00:49 | ECG ---
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
[2024-10-20 01:10] LABS: Albumin 3.4 g/dL (3.2-4.8); Alkaline Phosphatase 77 U/L (46-116); Anion Gap 5 (5-15); Aspartate Aminotransferase < 8 U/L (13-40); BUN/Creatinine Ratio 13.3 (10.0-20.0); Blood Urea Nitrogen 11 mg/dL (9-23); Calcium 8.7 mg/dL (8.7-10.4); Carbon Dioxide 26 mmol/L (20-31); Chloride 106 mmol/L (98-107); Glucose 179 mg/dL (74-106); Potassium 3.3 mmol/L (3.5-5.1); Sodium 137 mmol/L (136-145)
[2024-10-20] MEDS: SODIUM CHLORIDE 0.9% 2,000 ML IV ONE (01:10)
[2024-10-20 01:11] LABS: Alanine Aminotransferase < 9 U/L (7-40); Bilirubin, Total 0.2 mg/dL (0.2-1.0); Total Protein 6.7 g/dL (5.7-8.2)
[2024-10-20] MEDS: VANCOMYCIN 1GM/200ML PREMIX 200 ML IV ONE (01:32)
[2024-10-20 01:35] LABS: Blood Alcohol 3.6 mg/dL (<10)
[2024-10-20 01:49] LABS: Basophils # (auto) 0 10 ^3/uL (0-0.2); Basophils % (auto) 0.3 % (0.0-2.0); Eosinophils # (auto) 0.2 10 ^3/uL (0-0.8); Nucleated Red Blood Cells % 0.1 %
[2024-10-20 01:52] LABS: Eosinophils % (auto) 1.8 % (0.0-7.0); Hematocrit 27.1 % (41.0-53.0); Hemoglobin 8.5 g/dL (13.5-17.5); Lymphocytes # (auto) 1.5 10 ^3/uL (0.4-5.4); Lymphocytes % (auto) 14.7 % (10.0-50.0); Mean Corpuscular Hemoglobin 20.8 pg (28.0-32.0); Mean Corpuscular Hgb Conc. 31.4 g/dL (32.0-36.0); Mean Corpuscular Volume 66.2 fL (80.0-100.0); Monocytes # (auto) 0.7 10 ^3/uL (0-1.3); Monocytes % (auto) 6.4 % (0.0-12.0); Neutrophils # (auto) 7.9 10 ^3/uL (1.6-8.6); Neutrophils % (auto) 76.8 % (37.0-80.0); Platelet Count (auto) 411 10^3/uL (140-450); Red Blood Cells 4.09 10^6/uL (4.5-5.90); Red Cell Distribution Width 19.8 % (11.8-14.3); White Blood Cell 10.2 10^3/uL (4.4-10.8)
[2024-10-20 02:15] LABS: Anisocytosis Slight; Hypochromia Marked; Ovalocytes FEW; Platelet Estimate Adequate
[2024-10-20 03:30] LABS: Urine Amorphous Crystal FEW /hpf (None Seen); Urine Bacteria FEW /hpf (None Seen); Urine Blood Negative /uL (Negative); Urine Clarity Clear (Clear); Urine Color Yellow (Yellow); Urine Mucus FEW (None Seen); Urine Protein, UAD 1+ (Negative); Urine Specific Gravity 1.019 (1.001-1.035); Urine Urobilinogen 2 mg/dL (Negative); Urine WBC 2 /hpf (0 - 3); Urine pH 5.5 (5.0-9.0)
[2024-10-20 03:39] LABS: Amphetamine Screen, Urine Neg (NEGATIVE); Barbiturate Scree,Urine Neg (NEGATIVE); Benzodiazephine Screen, Urine Neg (NEGATIVE)
[2024-10-20 03:40] LABS: Cannabinoid Screen, Urine Neg (NEGATIVE); Cocaine Screen, Urine Neg (NEGATIVE); Opiate Scree,Urine Pos (NEGATIVE); Phencyclidine Screen, Urine Neg (NEGATIVE)
--- NOTE | 2024-10-20 03:49 | DVH ---
Examination: HDWCT CLINICAL INDICATION: scalp abscess COMPARISON: None. CONTRAST USED: Intravenous. TECHNIQUE: The examination was performed obtaining 5 mm slices post contrast. CT scan was done acco rding to ALARA (As Low as Reasonably Achievable). Multiplanar reconstructions were obtained. FINDINGS: Limited evaluation, due to beam hardening artifacts in the posterior fossa. SUPRATENTORIAL BRAIN: Cerebral Hemispheres: There is no midline shift or mass effect, intra- or extra-axial fluid collecti ons or hemorrhage. Periventricular White Matter/Basal Ganglia: No abnormal areas of altered attenuation within the [place] ventricular white matter or basal ganglia. POSTERIOR FOSSA: The brainstem is normal and the visualized cerebellar hemispheres are unremarkable. VENTRICULAR SYSTEM: Slightly asymmetrical both lateral ventricles with the right one being prominent , a normal variation. There is no evidence of hydrocephalus or transependymal flow of cerebrospinal fluid. SKULL BASE AND PARASELLAR REGION: The skull base is normal, with no parasellar masses or abnormaliti es identified. CALVARIUM AND SCALP REGION: Hypo- to iso-dense lesion of approximate size 4.3 x 1.1 x 3.9 cm with mi ld adjacent fat stranding noted in the right occipital scalp, infective/inflammatory etiology, probab le forming abscess. Advised clinical correlation. PARANASAL SINUSES: Mucous retention cyst noted in the visualized left maxillary sinus. No significant inflammatory changes are identified in the visualized paranasal sinuses. IMPRESSION: Hypo- to iso-dense lesion of approximate size 4.3 x 1.1 x 3.9 cm with mild adjacent fat stranding noted in the right occipital scalp, infective/inflammatory etiology, probable forming absce ss. Advised clinical correlation. No evidence of bony erosion or any intracranial extension in curr ent study. Electronically Signed 10/20/2024 03:48 Radha Brady
[2024-10-20] MEDS: ONDANSETRON HCL 4 MG/2 ML VIAL IV ONE (04:17)
[2024-10-20] MEDS: MORPHINE SULFATE 4 MG/ML SYR/VIAL IV ONE (04:19)
--- NOTE | 2024-10-20 04:20 | DVH ---
INDICATION: r/o abscess COMPARISON: None TECHNIQUE: CT of the left arm was performed with contrast. Volume transverse images were obtained a nd reconstructed in multiple planes using bone and soft tissue algorithms. CONTRAST: None Radiation Dose Information: CTDI volume is 24.0 mGy. Dose-length product is 1269 mGy*cm FINDINGS: There is soft tissue edema in the mid to distal arm. There is a peripherally enhancing fluid collect ion measuring 1.9 x 1.8 cm ( series 309, image 117), most consistent with abscess. There is a more hall perficial peripherally enhancing fluid collection in the muscles of the mid arm adjacent to a skin de fect. This superficial fluid collection measures 8 x 9 x 7 mm ( series 309, image 107) and is also c onsistent with abscess. Diffuse intramuscular and soft tissue edema. There are small foci of gas in t he upper arm with ill-defined enhancement consistent with infection. There is normal vascular enhancement. Multiple enlarged left axillary lymph nodes measuring up to 2.0 cm compatible with reactive adenopath y. There is gynecomastia. The alignment is normal. The joint spaces are normal. There is no fracture. No cortical destruction or periosteal reaction. IMPRESSION: 1. Multifocal cellulitis and multiple intramuscular abscesses in the left arm as described. Multiple foci of gas present within the muscles of the upper arm for which the presence of gas- producing bact erial infection is not excluded. 2. Reactive left axillary lymphadenopathy. 3. All CT scans at this medical facility are performed using dose modulation techniques as appropriat e to a performed exam including the following: Automated exposure control was utilized; adjustment of the MA and/or KV according to patient size; and use of iterative reconstruction technique.
--- NOTE | 2024-10-20 05:19 | DVH ---
Examination: RUECT CLINICAL INDICATION: SCALP ABSCESS. COMPARISON: None. CONTRAST USED: Intravenous. TECHNIQUE: A CT scan of the right upper extremity was performed, including postcontrast images. Mult iplanar reconstructions were evaluated. CT scan done according to ALARA (As Low as Reasonably Achieva ble).FINDINGS:Soft Tissues:Skin Surface and Subcutaneous Tissues: Irregularity and thickening of the skin surface are observed along the lateral aspect of the arm, wit h a thickness of approximately 10 mm. Biceps Muscle: A localized fluid collection is noted within the biceps muscle, measuring approximately 2 x 1 x 1 cm, suggestive of an abscess. Multiple ill-defined fluid collections are observed in the anterior biceps muscle, just above the cub ital fossa. The largest of these measures approximately 3 x 2 x 3 cm and contains specks within, also suggestive of abscesses. Lymph Nodes: Multiple reactive lymph nodes are identified in the right axillary region, with the lar gest measuring 2 x 1 cm. Bones: No evidence of bony erosion or other osseous abnormalities is noted.IMPRESSION:1. Multiple a bscesses involving the biceps muscle, the largest measuring 3 x 2 x 3 cm, located anteriorly just abo ve the cubital fossa. 2. Skin thickening and irregularity along the lateral aspect of the arm (10 mm thick). 3. Reactive lymphadenopathy in the right axillary region, with the largest node measuring 2 x 1 cm. 4. No evidence of bony erosion or osseous abnormality. Electronically Signed 10/20/2024 05:18 Radha Brady
[2024-10-20 07:36] VITALS: BP 133/54; PULSE 72; RESP 15; TEMP 98.1; O2SAT 96
== END 2024-10-20 08:09 | disposition short-term general hospital (02) ==
LOC: ER 23:01 → EDBD 23:01 → ER 10-20 07:36
DX: L02.811 Cutaneous abscess of head [any part, except face] (principal); L02.414 Cutaneous abscess of left upper limb; L02.413 Cutaneous abscess of right upper limb; L03.114 Cellulitis of left upper limb; E11.9 Type 2 diabetes mellitus without complications; E78.5 Hyperlipidemia, unspecified; F17.290 Nicotine dependence, other tobacco product, uncomplicated; I10 Essential (primary) hypertension; R94.31 Abnormal electrocardiogram [ECG] [EKG]; Z79.899 Other long term (current) drug therapy
CPT/HCPCS: 36415; 70460; 73201; 80053; 80307; 80320; 81001; 83605; 83880; 84484; 85025; 87040; 87086; 93005; 96365; 96366; 96375; 99285; J2270; J2405; J3370; J7030; Q9967